=== PATIENT | female | born 1955 | race Caucasian/White ===

== ENCOUNTER 2017-08-03 20:52 | Emergency (ER) | payer BC ==
[~2017-08-03] VITALS: Ht 154.9 cm; Wt 47.6 kg
[2017-08-03] MEDS ORDERED: LIDOCAINE HCL/PF 1% 30 ML SDV ONE (21:41)
[2017-08-03] MEDS ORDERED: LIDOCAINE HCL/PF 1% 30 ML VIAL TP ONE (22:00)
== END 2017-08-03 22:21 | disposition home or self-care (01) ==
LOC: ER 20:58
DX: S01.511A Laceration without foreign body of lip, initial encounter (principal); Z88.0 Allergy status to penicillin; Z88.2 Allergy status to sulfonamides; Z88.8 Allergy status to other drugs, medicaments and biological substances; Z88.1 Allergy status to other antibiotic agents; W01.0XXA Fall on same level from slipping, tripping and stumbling without subsequent striking against object, initial encounter; Y93.89 Activity, other specified; Y92.89 Other specified places as the place of occurrence of the external cause; Y99.8 Other external cause status
CPT/HCPCS: 12011; 99283; A4606; A6402; J3490 ×2; Z7610

== ENCOUNTER 2017-08-05 06:15 | Emergency (ER) | payer BC ==
[~2017-08-05] VITALS: Ht 152.4 cm; Wt 54.4 kg
[2017-08-05 06:20] VITALS: BP 140/90
== END 2017-08-05 07:19 | disposition home or self-care (01) ==
LOC: ER 06:16
DX: S01.511D Laceration without foreign body of lip, subsequent encounter (principal); Z88.1 Allergy status to other antibiotic agents; Z88.2 Allergy status to sulfonamides; Z88.0 Allergy status to penicillin; X58.XXXD Exposure to other specified factors, subsequent encounter
CPT/HCPCS: A4606; Z7502; Z7610